=== PATIENT | male | born 1950 | race Caucasian/White ===

== ENCOUNTER 2021-09-18 11:18 | Outpatient (CLI) | payer MEDICARE, BC ==
[2021-09-18 12:03] LABS: Hemoglobin 15.5 g/dL (13.5-17.5); Mean Corpuscular HGB CONC 33.8 g/dL (32.0-36.0); Mean Corpuscular Hemoglobin 29.9 pg (27.0-33.0); Mean Corpuscular Volume 88.6 fl (81.2-95.1); Mean Platelet Volume 9.1 fl (7.4-10.4); Platelet Count 223 10x3/uL (150-450); RBC Distribution Width 13.2 % (11.5-14.5); Red Blood Cell (RBC) Count 5.18 10x6/uL (4.32-5.72); White Blood Cell (WBC) Count 8.3 10x3/uL (3.5-10.5)
[2021-09-18 12:37] LABS: Anion Gap 16 mmol/L (10-20); BUN (Urea Nitrogen) 22 mg/dL (8.4-25.7); Calc. Creatinine Clearance 0 mL/min (70-130); Calcium 9.7 mg/dL (7.8-10.44); Carbon Dioxide 25 mmol/L (23-31); Chloride 101 mmol/L (98-107); Estimated GFR 69; Glucose 103 mg/dL (83-110); Potassium 4.7 mmol/L (3.5-5.1); Sodium 137 mmol/L (136-145)
== END 2021-09-18 11:19 | disposition home or self-care (01) ==
LOC: LABBT 11:18
PROVIDERS: ATTEND Thoracic Surgery (Cardiothoracic Vascular Surgery)
DX: Z01.812 Encounter for preprocedural laboratory examination (principal); Z20.822 Contact with and (suspected) exposure to COVID-19
CPT/HCPCS: 80048; 85027; 87811

== ENCOUNTER 2021-09-18 13:15 | Inpatient (IN) | payer MEDICARE, BC ==
[2021-09-23] MEDS ORDERED: Bupivacaine PF 0.5% 30 ML VIAL ONE (06:17)
[2021-09-23] MEDS ORDERED: Albumin 5% 500 ML ONE (06:17)
[2021-09-23] MEDS ORDERED: EPINEPHrine 1 MG/ML AMP ONE (06:17)
[2021-09-23] MEDS ORDERED: Dexamethasone 4 mg/ml Vial ONE (06:17)
[2021-09-23] MEDS ORDERED: Lidocaine 1% MPF 2 ML VIAL ONE (06:29)
[2021-09-23] MEDS ORDERED: Fentanyl 100 MCG/2 ML VIAL ONE ×6 (06:41→06:44)
[2021-09-23] MEDS ORDERED: Heparin 10,000 UNITS/1 ML VIAL 30,000 UNITS in Sodium Chloride 0.9% 1,000 ML FS SCH (06:45)
[2021-09-23] MEDS ORDERED: CEFAZOLIN 2 GM VIAL ONE (07:22)
[2021-09-23] MEDS ORDERED: Sodium Chloride 0.9% 100 ML ONE (07:22)
[2021-09-23] MEDS ORDERED: ePHEDrine 50 MG/ML VIAL ONE (07:41)
[2021-09-23] MEDS ORDERED: PROPOFOL 200 MG/20 ML VIAL ONE (07:41)
[2021-09-23] MEDS ORDERED: Ondansetron PF 4 MG/2 ML Vial ONE (07:41)
[2021-09-23] MEDS ORDERED: Cardioplegic Soln 1,000 ML BAG ONE (07:41)
[2021-09-23] MEDS ORDERED: Lidocaine 1% PF 5 ML VIAL ONE (07:41)
[2021-09-23] MEDS ORDERED: Magnesium Sulfate 1 GM/2 ML VIAL ONE (07:41)
[2021-09-23] MEDS ORDERED: Mannitol 12.5 GM/50 ML ONE (07:41)
[2021-09-23] MEDS ORDERED: Protamine Sulfate 250 MG/25 ML VIAL ONE (07:41)
[2021-09-23] MEDS ORDERED: Sodium Bicarb 50 MEQ/50 ML Abboject 8.4% SYRINGE ONE (07:41)
[2021-09-23] MEDS ORDERED: Norepinephrine 4 MG/4 ML VIAL ONE (07:41)
[2021-09-23] MEDS ORDERED: Thrombin 5000 UNITS/5 ML VIAL ONE (07:41)
[2021-09-23] MEDS ORDERED: Heparin 5,000 UNITS/ML VIAL ONE (07:41)
[2021-09-23] MEDS ORDERED: Lidocaine 2% PF 100 mg/5 ml Syringe ONE (07:41)
[2021-09-23] MEDS ORDERED: Heparin 30,000 units/30 ml VIAL ONE (07:41)
[2021-09-23] MEDS ORDERED: Papaverine 60 MG/2 ML VIAL ONE (07:41)
[2021-09-23] MEDS ORDERED: Rocuronium Bromide 10 MG/ML (10ML VIAL) ONE (07:41)
[2021-09-23] MEDS ORDERED: Calcium Chloride 1 GM/10 ML Abboject SYRINGE ONE (07:41)
[2021-09-23] MEDS ORDERED: Phenylephrine 10 MG/ML VIAL ONE (07:41)
[2021-09-23] MEDS ORDERED: Aminocaproic Acid 5 GM/20 ML VIAL ONE (07:41)
[2021-09-23] MEDS ORDERED: PHENYLEPHRINE-NS 100 MCG/ML 10 ML SYRINGE ONE (09:23)
[2021-09-23 11:08] LABS: Actual Bicarbonate (HCO3a) 21.7 mEq/L (22-28); Base Excess (BEa) -3.2 mEq/L (-2.0 to +3.0); CO2 Tension 38.6 mmHg (35.0-45.0); Calcium, Ionized (arterial) 1.31 mmol/L (1.12-1.30); O2 Tension (PaO2), arterial 88.8 mmHg (> 70.0); Potassium - ABG Lab 3.67 mmol/L (3.70-5.30); pH, Arterial 7.37 (7.35-7.45)
[2021-09-23 11:10] LABS: Puncture Site Arterial Line
[2021-09-23] MEDS ORDERED: Bisacodyl 5 MG TAB PO PRN (11:14)
[2021-09-23] MEDS ORDERED: Potassium Chloride 20 MEQ/100 ML PREMIX BAG IVPB PRN (11:14)
[2021-09-23] MEDS ORDERED: Morphine 2 MG/ML VIAL SLOW IVP PRN (11:14)
[2021-09-23] MEDS ORDERED: Fentanyl 100 MCG/2 ML VIAL SLOW IVP PRN ×2 (11:14)
[2021-09-23] MEDS ORDERED: Bisacodyl 10 MG SUPP PR PRN (11:14)
[2021-09-23] MEDS ORDERED: traMADol HCl 50 MG TAB PO PRN ×2 (11:14)
[2021-09-23] MEDS ORDERED: Nitroglycerin 50 MG/250 ML BOT 250 ML IVPB PRN (11:14)
[2021-09-23] MEDS ORDERED: Mag-Al 1200 mg/1200 mg/30 ML UDCUP PO PRN (11:14)
[2021-09-23] MEDS ORDERED: Norepinephrine 8 MG/0.9% NS 250 ML IVPB PRN (11:14)
[2021-09-23] MEDS ORDERED: Guaifenesin DM 100-10/5 ML UDCUP PO PRN (11:14)
[2021-09-23] MEDS ORDERED: Magnesium 2 GM/50 ML(in water) 2 GM in Premix Bag 1 BAG IVPB SCH (11:14)
[2021-09-23] MEDS ORDERED: Acetaminophen 325 MG TAB PO PRN (11:14)
[2021-09-23] MEDS ORDERED: Hetastarch 6% 500 ML 500 ML IVPB PRN (11:14)
[2021-09-23] MEDS ORDERED: Ondansetron PF 4 MG/2 ML Vial IVP PRN (11:14)
[2021-09-23 11:29] LABS: #Eosinphils 0.2 thou/uL (0.0-0.7); #Lymphocytes 2.9 thou/uL (1.20-3.40); #Monocytes 0.5 thou/uL (0.11-0.59); #Neutrophils 9.7 thou/uL (1.40-6.50); %Basophils 0.1 % (0.0-1.0); %Eosinophils 1.6 % (0.0-10.0); %Lymphocytes 21.7 % (21.0-51.0); %Monocytes 3.9 % (0.0-10.0); %Neutrophils 72.8 % (42.0-75.0); Mean Corpuscular HGB CONC 32.5 g/dL (32.0-36.0); Mean Corpuscular Hemoglobin 30.5 pg (27.0-31.0); Mean Corpuscular Volume 93.7 fL (78.0-98.0); Mean Platelet Volume 7.5 fL (7.4-10.4); Platelet Count 134 thou/uL (130-400); RBC Distribution Width 12.3 % (11.5-14.5); Red Blood Cell (RBC) Count 4.26 mill/uL (4.70-6.10); White Blood Cell (WBC) Count 13.3 thou/uL (4.8-10.8)
[2021-09-23 11:43] LABS: INR-International Normal Ratio 1.2; PTT 25.5 sec (22.9-36.1); Prothrombin Time 15.5 sec (12.0-14.7)
[2021-09-23 11:45] VITALS: BMI 29.0
[2021-09-23 11:52] LABS: Anion Gap 13 mmol/L (10-20); BUN (Urea Nitrogen) 21 mg/dL (8.4-25.7); Calc. Creatinine Clearance 87 mL/min (70-130); Calcium 9.7 mg/dL (7.8-10.44); Carbon Dioxide 23 mmol/L (23-31); Chloride 111 mmol/L (98-107); Estimated GFR 88; Glucose 173 mg/dL (83-110); Potassium 3.8 mmol/L (3.5-5.1); Sodium 143 mmol/L (136-145)
[2021-09-23] MEDS ORDERED: HUMULIN R 100 UNITS in Sodium Chloride 0.9% 100 ML IVPB SCH (12:00)
[2021-09-23] MEDS ORDERED: Dextrose 5% in Water 1,000 ML IV PRN (12:00)
[2021-09-23] MEDS ORDERED: Dextrose 50% Abboject 50 ML SYRINGE SLOW IVP PRN (12:00)
[2021-09-23] MEDS: Insulin Regular 300 UNITS/3 ML VIAL SC PRN ×4 (12:06→23:47)
[2021-09-23] MEDS: Ketorolac Tromethamine 30 MG/ML VIAL IVP SCH ×3 (12:12→23:30)
[2021-09-23] MEDS: D5 1/2 NS w/20 mEq KCL 1,000 ML IV SCH (12:13)
[2021-09-23 14:46] LABS: Actual Bicarbonate (HCO3a) 23.9 mEq/L (22-28); Base Excess (BEa) -1.4 mEq/L (-2.0 to +3.0); CO2 Tension 42.5 mmHg (35.0-45.0); Calcium, Ionized (arterial) 1.22 mmol/L (1.12-1.30); Carboxyhemoglobin (COHb) 0.8 gm% (0.0-3.0); Hemoglobin (Hb) 13.9 g/dL (14.0-18.0); O2 Tension (PaO2), arterial 128.3 mmHg (> 70.0); Potassium - ABG Lab 4.01 mmol/L (3.70-5.30); pH, Arterial 7.37 (7.35-7.45)
[2021-09-23 14:47] LABS: Puncture Site Arterial Line
[2021-09-23 14:48] LABS: ALV-art Gradient 103.775 mmHg (0-20)
[2021-09-23 17:10] LABS: Hemoglobin 13.2 g/dL (14.0-18.0)
[2021-09-23] MEDS: CEFAZOLIN 2 GM in Sodium Chloride 0.9% 100 ML IVPB SCH ×2 (17:23→23:29)
[2021-09-23 17:25] LABS: Potassium 4.5 mmol/L (3.5-5.1)
[2021-09-23] MEDS: Rosuvastatin 20 MG TAB PO SCH (20:43)
[2021-09-23] MEDS ORDERED: Famotidine/PF 20 mg/2ml Vial SLOW IVP SCH (21:00)
[2021-09-24 04:31] LABS: #Monocytes 0.7 thou/uL (0.11-0.59); #Neutrophils 7.5 thou/uL (1.40-6.50); %Basophils 0.2 % (0.0-1.0); %Monocytes 7.6 % (0.0-10.0); %Neutrophils 81.2 % (42.0-75.0); Hemoglobin 11.8 g/dL (14.0-18.0); Mean Corpuscular HGB CONC 32.4 g/dL (32.0-36.0); Mean Corpuscular Hemoglobin 30.5 pg (27.0-31.0); Mean Corpuscular Volume 94.4 fL (78.0-98.0); Mean Platelet Volume 7.5 fL (7.4-10.4); Platelet Count 145 thou/uL (130-400); RBC Distribution Width 12.3 % (11.5-14.5); Red Blood Cell (RBC) Count 3.87 mill/uL (4.70-6.10); White Blood Cell (WBC) Count 9.3 thou/uL (4.8-10.8)
[2021-09-24 04:54] LABS: Anion Gap 13 mmol/L (10-20); BUN (Urea Nitrogen) 17 mg/dL (8.4-25.7); Calc. Creatinine Clearance 90 mL/min (70-130); Calcium 8.3 mg/dL (7.8-10.44); Carbon Dioxide 22 mmol/L (23-31); Chloride 105 mmol/L (98-107); Estimated GFR 90; Glucose 125 mg/dL (83-110); Potassium 4.3 mmol/L (3.5-5.1); Sodium 136 mmol/L (136-145)
[2021-09-24] MEDS: Ketorolac Tromethamine 30 MG/ML VIAL IVP SCH ×3 (06:13→17:43)
[2021-09-24] MEDS: CEFAZOLIN 2 GM in Sodium Chloride 0.9% 100 ML IVPB SCH (08:56)
[2021-09-24] MEDS: Aspirin 325 MG TAB PO SCH (08:56)
[2021-09-24] MEDS: Magnesium 2 GM/50 ML(in water) 2 GM in Premix Bag 1 BAG IVPB SCH (08:57)
[2021-09-24] MEDS: D5 1/2 NS w/20 mEq KCL 1,000 ML IV SCH (10:48)
[2021-09-24] MEDS ORDERED: Insulin Glargine 30 UNITS/0.3 ML VIAL SC PRN (11:47)
[2021-09-25] MEDS: Rosuvastatin 20 MG TAB PO SCH ×2 (00:28→19:33)
[2021-09-25] MEDS: Ketorolac Tromethamine 30 MG/ML VIAL IVP SCH ×4 (00:28→18:52)
[2021-09-25] MEDS: Aspirin 325 MG TAB PO SCH (08:09)
[2021-09-25] MEDS: Magnesium 2 GM/50 ML(in water) 2 GM in Premix Bag 1 BAG IVPB SCH (08:09)
[2021-09-25] MEDS ORDERED: Zolpidem Tartrate 5 MG TAB PO PRN (08:10)
[2021-09-25] MEDS ORDERED: Mineral Oil ENEMA PR PRN (08:10)
[2021-09-25] MEDS ORDERED: diphenhydrAMINE 25 MG CAP PO PRN (08:10)
[2021-09-25] MEDS ORDERED: Nitroglycerin 0.4 MG TAB (25 Tab Bottle) SL PRN (08:10)
[2021-09-25] MEDS ORDERED: Milk Of Magnesia 30 ML UDCUP PO PRN (08:10)
[2021-09-25] MEDS ORDERED: Guaifenesin DM 100-10/5 ML UDCUP PO PRN (08:10)
[2021-09-25] MEDS ORDERED: Furosemide 40 MG TAB PO SCH (08:30)
[2021-09-25] MEDS ORDERED: Potassium Chloride 10 MEQ TAB PO SCH (08:30)
[2021-09-25] MEDS ORDERED: Metoprolol Tartrate 25 MG TAB PO SCH (17:15)
[2021-09-26] MEDS: Ketorolac Tromethamine 30 MG/ML VIAL IVP SCH ×3 (02:36→11:01)
[2021-09-26] MEDS ORDERED: Metoprolol Tartrate 25 MG TAB PO SCH (09:00)
[2021-09-26] MEDS: Aspirin 325 MG TAB PO SCH (11:00)
[2021-09-26] MEDS: Furosemide 40 MG TAB PO SCH (11:01)
[2021-09-26] MEDS: Potassium Chloride 10 MEQ TAB PO SCH (11:01)
[2021-09-26] MEDS: Rosuvastatin 20 MG TAB PO SCH (21:05)
[2021-09-27] MEDS: Potassium Chloride 10 MEQ TAB PO SCH (07:40)
[2021-09-27] MEDS: Furosemide 40 MG TAB PO SCH (07:40)
[2021-09-27] MEDS: Aspirin 325 MG TAB PO SCH (08:42)
[2021-09-27 11:03] VITALS: TEMP 97.4
[2021-09-27 11:53] VITALS: BP 121/63
[2021-09-29 14:45] LABS: Actual Bicarbonate (HCO3a) 21.8 mEq/L (22-28); Analyzer IN Cardio OR; Base Excess (BEa) -2.1 mEq/L (-2.0 to +3.0); CO2 Tension 35.1 mmHg (35.0-45.0); Calcium, Ionized (arterial) 1.18 mmol/L (1.12-1.30); Carboxyhemoglobin (COHb) 1.1 gm% (0.0-3.0); O2 Tension (PaO2), arterial 150.6 mmHg (> 70.0); Potassium - ABG Lab 3.81 mmol/L (3.70-5.30); pH, Arterial 7.41 (7.35-7.45)
[2021-09-29 14:45] LABS: Actual Bicarbonate (HCO3a) 23.1 mEq/L (22-28); Analyzer IN Cardio OR; Base Excess (BEa) -2.7 mEq/L (-2.0 to +3.0); CO2 Tension 43.9 mmHg (35.0-45.0); Calcium, Ionized (arterial) 1.16 mmol/L (1.12-1.30); Carboxyhemoglobin (COHb) 1.1 gm% (0.0-3.0); Hemoglobin (Hb) 13.5 g/dL (14.0-18.0); O2 Tension (PaO2), arterial 123.8 mmHg (> 70.0); Potassium - ABG Lab 3.78 mmol/L (3.70-5.30); pH, Arterial 7.34 (7.35-7.45)
[2021-09-29 14:46] LABS: Actual Bicarbonate (HCO3a) 23.7 mEq/L (22-28); Analyzer IN Cardio OR; Base Excess (BEa) -3.1 mEq/L (-2.0 to +3.0); CO2 Tension 50.5 mmHg (35.0-45.0); Calcium, Ionized (arterial) 1.07 mmol/L (1.12-1.30); Carboxyhemoglobin (COHb) 0.2 gm% (0.0-3.0); Hemoglobin (Hb) 10.5 g/dL (14.0-18.0); O2 Tension (PaO2), arterial 315.7 mmHg (> 70.0); Potassium - ABG Lab 4.48 mmol/L (3.70-5.30); pH, Arterial 7.29 (7.35-7.45)
[2021-09-29 14:46] LABS: Actual Bicarbonate (HCO3a) 25.5 mEq/L (22-28); Analyzer IN Cardio OR; Base Excess (BEa) -0.9 mEq/L (-2.0 to +3.0); CO2 Tension 50.3 mmHg (35.0-45.0); Calcium, Ionized (arterial) 1.06 mmol/L (1.12-1.30); Carboxyhemoglobin (COHb) 0.1 gm% (0.0-3.0); Hemoglobin (Hb) 10.5 g/dL (14.0-18.0); O2 Tension (PaO2), arterial 363.2 mmHg (> 70.0); Potassium - ABG Lab 4.55 mmol/L (3.70-5.30); pH, Arterial 7.32 (7.35-7.45)
[2021-09-29 14:46] LABS: Actual Bicarbonate (HCO3v) 25 mEq/L (22-28); Analyzer IN Cardio OR; Base Excess -2.1 mEq/L (-2.0 to +3.0); Calcium, Ionized (venous) 1.08 mmol/L (1.16-1.32); Chloride (VBG) 107 mmol/L (98-106); Hemoglobin (Hb) 10.5 g/dL (12.6-17.4); Potassium (VBG) 4.44 mmol/L (3.70-5.30); Sodium 135.5 mmol/L (133-146); pH (venous) 7.29 (7.32-7.43)
[2021-09-29 14:46] LABS: Actual Bicarbonate (HCO3v) 25 mEq/L (22-28); Analyzer IN Cardio OR; Calcium, Ionized (venous) 1.08 mmol/L (1.16-1.32); Chloride (VBG) 107 mmol/L (98-106); Hemoglobin (Hb) 10.5 g/dL (12.6-17.4); Potassium (VBG) 4.44 mmol/L (3.70-5.30); Sodium 135.5 mmol/L (133-146); pH (venous) 7.28 (7.32-7.43)
[2021-09-29 14:47] LABS: Actual Bicarbonate (HCO3a) 22.7 mEq/L (22-28); Analyzer IN Cardio OR; Base Excess (BEa) -3.1 mEq/L (-2.0 to +3.0); CO2 Tension 43.5 mmHg (35.0-45.0); Calcium, Ionized (arterial) 1.32 mmol/L (1.12-1.30); O2 Tension (PaO2), arterial 71.3 mmHg (> 70.0); Potassium - ABG Lab 3.71 mmol/L (3.70-5.30); pH, Arterial 7.34 (7.35-7.45)
[2021-09-29 14:47] LABS: Actual Bicarbonate (HCO3a) 22.3 mEq/L (22-28); Analyzer IN Cardio OR; Base Excess (BEa) -2.7 mEq/L (-2.0 to +3.0); CO2 Tension 39.6 mmHg (35.0-45.0); Calcium, Ionized (arterial) 1.43 mmol/L (1.12-1.30); Carboxyhemoglobin (COHb) 0.3 gm% (0.0-3.0); Hemoglobin (Hb) 11.1 g/dL (14.0-18.0); O2 Tension (PaO2), arterial 139.1 mmHg (> 70.0); Potassium - ABG Lab 4.06 mmol/L (3.70-5.30); pH, Arterial 7.37 (7.35-7.45)
[2021-09-29 14:50] LABS: Puncture Site Arterial Line
[2021-09-29 14:50] LABS: Puncture Site Arterial Line
[2021-09-29 14:50] LABS: Puncture Site Arterial Line
[2021-09-29 14:51] LABS: Puncture Site Arterial Line
[2021-09-29 14:52] LABS: Puncture Site Arterial Line
[2021-09-29 14:52] LABS: Puncture Site Arterial Line
== END 2021-09-27 14:39 | disposition home or self-care (01) | DRG 236 ==
LOC: SURG A 09-23 05:42 → CCU 09-23 10:48 → 2NO 09-25 12:42
PROVIDERS: ADMIT Thoracic Surgery (Cardiothoracic Vascular Surgery); ATTEND Thoracic Surgery (Cardiothoracic Vascular Surgery)
PROC: 02100Z9 Bypass Coronary Artery, One Artery from Left Internal Mammary, Open Approach (ICD-10-PCS; principal; 2021-09-23)
PROC: 021209W Bypass Coronary Artery, Three Arteries from Aorta with Autologous Venous Tissue, Open Approach (ICD-10-PCS; 2021-09-23)
PROC: 06BQ4ZZ Excision of Left Saphenous Vein, Percutaneous Endoscopic Approach (ICD-10-PCS; 2021-09-23)
PROC: 5A1221Z Performance of Cardiac Output, Continuous (ICD-10-PCS; 2021-09-23)
PROC: 02L70ZK Occlusion of Left Atrial Appendage, Open Approach (ICD-10-PCS; 2021-09-23)
DX: I25.10 Atherosclerotic heart disease of native coronary artery without angina pectoris (principal); I47.1 Supraventricular tachycardia; Z20.822 Contact with and (suspected) exposure to COVID-19; I10 Essential (primary) hypertension; E78.5 Hyperlipidemia, unspecified; E66.9 Obesity, unspecified; Z90.09 Acquired absence of other part of head and neck; Z79.82 Long term (current) use of aspirin; Z79.899 Other long term (current) drug therapy; Z68.29 Body mass index [BMI] 29.0-29.9, adult
CPT/HCPCS: 36415; 36416; 36430; 71045; 80048; 82805; 82947; 85025; 85610; 85730; 86850; 86900; 86901; 93005; 93010; 93798; 94002; C1751; C1776; J0171; J0690; J1100; J1642; J1644; J1815; J1885; J2001; J2150; J2270; J2370; J2405; J2440; J2704; J2720; J3010; J3370; J3475; J3480; J3490; P9045; S0017; S0020; S0028